=== PATIENT | female | born 1970 | race Hispanic/Latino ===

== ENCOUNTER 2019-03-06 06:40 | Emergency (ER) | payer OTHER ==
[2019-03-06] MEDS ORDERED: Adacel (T-DAP) 0.5 ML SYRINGE ONE (07:10)
[2019-03-06] MEDS ORDERED: Lidocaine 1% (PF) 30 ML VIAL ONE (07:10)
== END 2019-03-06 08:13 | disposition home or self-care (01) ==
LOC: NAV ERS 06:40
DX: S01.01XA Laceration without foreign body of scalp, initial encounter (principal); S60.221A Contusion of right hand, initial encounter; S80.02XA Contusion of left knee, initial encounter; I10 Essential (primary) hypertension; E11.9 Type 2 diabetes mellitus without complications; Z79.899 Other long term (current) drug therapy; Z23 Encounter for immunization; Z79.4 Long term (current) use of insulin; W18.30XA Fall on same level, unspecified, initial encounter
CPT/HCPCS: 12011; 90471; 90715; 99001; J2001